=== PATIENT | male | born 1985 | race Caucasian/White ===

== ENCOUNTER 2018-12-09 14:17 | Emergency (ER) | payer OTHER ==
[2005-05-23 09:47] VITALS: BP 159/89
[~2018-12-09] VITALS: Ht 365.8 cm; Wt 105.5 kg
[~2018-12-09 14:17] MED LIST: DULERA1 ARO IH; LIPITOR 40MG TA40 MG PO; MOTRIN 600600 MG/TAB PO; NO HOME MEDICATIONS; OXYCONTIN40 MG PO; OXYCONTIN60 MG PO; PHENERGAN 25 TA25 MG PO; PREVACID 30MG30 M1 PO; ROXICODONE30 MG PO; RT SPIRIVA18 MCG IH
[2018-12-09] MEDS ORDERED: ABILIFY30 MG PO (15:10)
[2018-12-09 15:32] LABS: BASO # 0.1 (0.0-0.2); BASO % 0.9 % (0.0-2.0); EOS # 0.1 (0.0-0.7); EOS % 1.6 % (0-4.0); GRAN # 4.9 (1.4-6.5); GRAN % 65.3 % (42.2-75.2); HEMATOCRIT 47.7 % (42.0-52.0); HEMOGLOBIN 16.4 g/dl (13.5-18.0); LYMPH # 1.9 (1.2-3.4); LYMPH % 25.9 % (20.0-51.0); MEAN CELL VOLUME 94 fl (80.0-100.0); MEAN CORPUSCULAR HEMOGLOBIN 32 pg (27.0-31.0); MEAN CORPUSCULAR HGB CONC 34 g/dl (33.0-37.0); MEAN PLATELET VOLUME 9.2 fl (7.4-10.4); MONO # 0.5 (0.1-0.6); PLATELET COUNT 215 K/mm3 (130-400); RED BLOOD COUNT 5.08 M/mm3 (4.20-5.60)
[2018-12-09 15:37] LABS: ALANINE AMINOTRANSFERASE 38 U/L (21-72); ALBUMIN 4.3 gm/dL (3.5-5.0); ALKALINE PHOSPHATASE 86 U/L (50-136); ANION GAP 11 mmol/L (7-16); AST,SGOT 34 U/L (15-37); BILIRUBIN,TOTAL 1.8 mg/dL (0.0-1.0); BLOOD UREA NITROGEN 11 mg/dL (9-20); CALCIUM 9.6 mg/dL (8.4-10.2); CARBON DIOXIDE 24 mmol/L (22-30); CHLORIDE 106 mmol/L (98-107); CREATININE, serum 0.91 (0.66-1.25); GLUCOSE 101 mg/dL (74-106); POTASSIUM 4.1 mmol/L (3.4-5.0); SODIUM 141 mmol/L (137-145); TOTAL PROTEIN 7.4 gm/dL (6.4-8.2)
[2018-12-09 15:49] LABS: TROPONIN-I < 0.012 ng/mL (0.000-0.035)
[2018-12-09 17:00] VITALS: BP 113/83; PULSE 68; TEMP 97.6
== END 2018-12-09 17:00 | disposition home or self-care (01) ==
LOC: COL.ER 14:17
PROVIDERS: Nurse Practitioner
DX: R07.89 Other chest pain (principal); F31.9 Bipolar disorder, unspecified; F17.210 Nicotine dependence, cigarettes, uncomplicated

== ENCOUNTER 2023-02-25 06:46 | Emergency (ER) | payer SELFPAY ==
[~2023-02-25] VITALS: Ht 175.3 cm; Wt 86.4 kg
[~2023-02-25 06:46] MED LIST changes: +ABILIFY30 MG PO
[2023-02-25 06:52] VITALS: BP 157/97; PULSE 111; TEMP 97.5
[2023-02-25 07:21] LABS: BASO # 0.1 K/mm3 (0.0-0.2); BASO % 0.8 % (0.0-2.0); EOS % 0.2 % (0.0-4.0); GRAN # 7.3 K/mm3 (1.4-6.5); GRAN % 68.9 % (42.2-75.2); HEMATOCRIT 48.3 % (42.0-52.0); HEMOGLOBIN 17.1 g/dl (13.5-18.0); LYMPH # 2.5 K/mm3 (1.2-3.4); LYMPH % 23.1 % (20.0-51.0); MEAN CELL VOLUME 94 fl (80.0-100.0); MEAN CORPUSCULAR HEMOGLOBIN 33 pg (27-31); MEAN CORPUSCULAR HGB CONC 35 g/dl (33.0-37.0); MEAN PLATELET VOLUME 8.6 fl (7.4-10.4); MONO # 0.7 K/mm3 (0.1-0.6); MONO % 6.4 % (1.7-9.3); PLATELET COUNT 299 K/mm3 (130-400); RED BLOOD COUNT 5.15 M/mm3 (4.20-5.60); REDCELL DISTRIBUTION WIDTH-CV 11.9 % (11.5-14.5)
[2023-02-25 07:41] LABS: ALBUMIN 4.7 gm/dL (3.5-5.0); BILIRUBIN,TOTAL 2.1 mg/dL (0.2-1.2); CALCIUM 9.5 mg/dL (8.4-10.2); CREATININE, serum 1.25 mg/dL (0.72-1.25); POTASSIUM 3.6 mmol/L (3.5-4.5); TOTAL PROTEIN 7.3 gm/dL (6.2-8.1)
== END 2023-02-25 09:40 | disposition home or self-care (01) ==
LOC: COL.ER 06:46
PROVIDERS: Family Medicine
DX: R19.7 Diarrhea, unspecified (principal); F31.9 Bipolar disorder, unspecified; Z79.899 Other long term (current) drug therapy
CPT/HCPCS: J7030; Q9967

== ENCOUNTER 2023-12-14 05:47 | Emergency (ER) | payer OTHER ==
[~2023-12-14] VITALS: Ht 185.4 cm; Wt 102.3 kg
[2023-12-14 06:03] VITALS: BP 131/87; TEMP 98.4
[2023-12-14] MEDS ORDERED: LOTRIMIN ULTRA1% TP (06:28)
[2023-12-14 06:42] VITALS: PULSE 95
== END 2023-12-14 06:42 | disposition home or self-care (01) ==
LOC: COL.ER 05:47
DX: R21 Rash and other nonspecific skin eruption (principal); F31.9 Bipolar disorder, unspecified; F17.210 Nicotine dependence, cigarettes, uncomplicated; Z79.899 Other long term (current) drug therapy